=== PATIENT | female | born 1950 | race Caucasian/White ===

== ENCOUNTER → 2019-12-26 | Day surgery (SDC) | payer MEDICARE, BC ==
[~2019-12-26] MED LIST: BIOTIN PO; CALCIUM PO; CHOLECALCIFEROL PO; DEXMEDETOMIDINE HCL 2 ML ONE; FAMOTIDINE PO; FISH OIL 1,2001 EACH PO; FLUOROMETHOLONE15 ML OP; FOLIC ACID PO; GLUCAGON FOR INJ 1 MG VIAL ONE; HYOSCYAMINE 0.125 MG TAB ONE; LIDOCAINE HCL 2% LOCAL INJ 5 ML SDV VIAL INJ ONE; LOVASTATIN20 MG PO; MIDAZOLAM HCL 2 MG/2 ML VIAL ONE; MULTIVITAMINS1 EAC6 PO; PROPOFOL IV EMULSION 10 MG/ML 50 ML VIAL ONE; SODIUM CHLORIDE 0.9% 50ML 50 ML ONE; VITAMIN D PO; Z.0.LOSARTAN POTAS10 PO; Z.0.MULTIVITAMINS1 E PO; Z.0.PANTOPRAZOLE SO4 PO; Z.1.METHOTREXATE2.5 PO
--- OUTSIDE RECORDS SUMMARY | 2019-12-26 06:16 | XMS REPORT | Summary of Care ---
Author Author [facility] - Health Organization [facility] - Health Address Unknown Phone Unavailable Care Team Providers Care Subsystems Engineer Name Role Phone Laura Luna DO PCP Reason for Visit * Reason Comments Follow-up Atorvastatin Lesion right foot Encounter Details Care Team Description Date Type Department Laura Luna DO [address] [facility] [address] [place] [address] Mixed hyperlipidemia (Primary Dx); Skin lesion 11/11/2019 Office Visit [facility] Family Medicine [address] [facility] [address] [place] [address] Allergies No Known Allergiesdocumented as of this encounter (statuses as of 11/11/2019) Medications End Date Status Medication Sig Dispensed Refills Start Date Active methotrexate 2.5 mg Take 2.5 mg 0 tablet by mouth weekly. Pt takes 6 tabs once a week Active famotidine 20 mg tablet Take 20 mg by 0 mouth as needed. Active CALCIUM CARBONATE ORAL Take 900 mg 0 by mouth daily. Active FOLIC ACID ORAL Take 2,000 0 mcg by mouth daily. Active MULTIVITAMIN ORAL Take by 0 mouth. Active BIOTIN ORAL Take 5,000 0 mcg by mouth daily. Active Cholecalciferol, Vitamin Take 2,000 0 D3, 2,000 unit capsule Units by mouth daily. Active docosahexanoic acid/epa Take by 0 (FISH OIL ORAL) mouth daily. Takes 1,000/200 Active losartan 100 mg Take 1 tablet 90 tablet 3 tabletIndications: by mouth 9 Essential hypertension daily. Active atorvastatin 10 mg Take 1 tablet 30 tablet 2 tabletIndications: Mixed by mouth at 9 hyperlipidemia bedtime. 11/11/2019 Discontinued ERGOCALCIFEROL, VITAMIN Take 3,600 0 D2, (VITAMIN D ORAL) Int'l Units/day by mouth. documented as of this encounter (statuses as of 11/11/2019) Active Problems Problem Noted Date Mixed hyperlipidemia 11/11/2019 Rheumatoid arthritis Overview: sees rheumatology Dr. Torres Breast cancer Overview: left then right s/p bilateral mastectomy in the 1990s Hypertension Onychomycosis Salzmann nodular degeneration GERD (gastroesophageal reflux disease) Hemorrhoid Osteopenia documented as of this encounter (statuses as of 11/11/2019) Resolved Problems Problem Noted Date Resolved Date UTI (urinary tract infection) 08/16/2016 03/22/2018 Pneumonia 03/16/2015 03/22/2018 Sinusitis 03/22/2018 Overview: frequent Bronchitis 03/22/2018 Overview: frequent RUQ pain 03/22/2018 Overview: intermittent Hypercalcemia 03/22/2018 documented as of this encounter (statuses as of 11/11/2019) Immunizations Name Administration Dates Next Due Influenza High Dose 08/11/2019 Influenza Virus Vaccine 08/03/2018 Influenza Virus Vaccine 07/25/2015, 08/07/2014, 08/14/2013, 07/30/2012, Quad IM Multi-dose 6+ MO 07/20/2011 Pneumococcal 13 10/25/2016 Conjugate, PCV13 (Prevnar 13) Pneumococcal 10/16/2009 Polysaccharide, PPSV23 (PNEUMOVAX) Tdap 09/03/2012, 11/30/2007 Zoster Vaccine 09/05/2019 Recombinant documented as of this encounter Social History Date Tobacco Use Types Packs/Day Years Used Never Smoker Smokeless Tobacco: Never Used Drinks/Week oz/Week Comments Alcohol Use 0 Standard drinks or equivalent 0.0 No Sex Assigned at Date Recorded Not on file Industry Job Start Date Occupation Not on file Not on file Not on file Travel End Travel History Travel Start No recent travel history available. documented as of this encounter Last Filed Vital Signs Reading Time Taken Comments Vital Sign 134/84 11/11/2019 11:36 AM RETAIL COSMETICS SALES COUNTER MANAGER Blood Pressure 73 11/11/2019 11:36 AM RETAIL COSMETICS SALES COUNTER MANAGER Pulse 36.4 C (97.5 F) 11/11/2019 11:36 AM RETAIL COSMETICS SALES COUNTER MANAGER Temperature 16 11/11/2019 11:36 AM RETAIL COSMETICS SALES COUNTER MANAGER Respiratory Rate 99% 11/11/2019 11:36 AM RETAIL COSMETICS SALES COUNTER MANAGER Oxygen Saturation - - Inhaled Oxygen Concentration 78.6 kg (173 lb 3.2 oz) 11/11/2019 11:36 AM RETAIL COSMETICS SALES COUNTER MANAGER Weight 162.6 cm (5' 4") 11/11/2019 11:36 AM RETAIL COSMETICS SALES COUNTER MANAGER Height 29.73 11/11/2019 11:36 AM RETAIL COSMETICS SALES COUNTER MANAGER Body Mass Index documented in this encounter Progress Notes * Leonciosavanna Laura, DO - 11/11/2019 12:00 PM RETAIL COSMETICS SALES COUNTER MANAGER chief complaint: Follow-up (Atorvastatin) and Lesion (right foot) Nakia Ashby is a 67 year old female with pmh of breast ca and b/l masectom y in the , GERD, HTN, and osteopenia presents for f/u after starting atorva statin. Patient has hx/o elevated lipids 6 months ago and at that time I offered to let her work on diet. She reports she did not change her diet too much, she did try benefiber but this caused more cramping and some increased fecal urgency so she stopped this. She had repeat testing 2 months ago that were still elevated so I recommended st arting Atorvastatin and she denies any medication SEs including joint pain or ab d pain. She is requesting to go to lovastatin instead of atorvastatin due to cost. He did see Dr. Ashby and they did an xray and found that it is a darwin protrusio n and they recommended soaking it and filing it down and this is helping. It is still bothering her and she would like to have it removed. Last colonoscopy was in 2014 and was normal, next scheduled for 12/2019 She did get the shingrix vaccine in 08/2019 and the flu in 07/2019 HISTORY Past Medical History: Diagnosis Date Breast cancer 1988, 1997 left then right s/p bilateral mastectomy Bronchitis frequent GERD (gastroesophageal reflux disease) Hemorrhoid Hypercalcemia Hypertension Onychomycosis Osteopenia Pneumonia 03/2015 Pyelonephritis 07/2015 Rheumatoid arthritis sees rheumatology Dr. Torres; she is sero negative RUQ pain intermittent; 02/14/17 normal abdominal usg Salzmann nodular degeneration Sinusitis frequent UTI (urinary tract infection) 08/2016 Past Surgical History: Procedure Laterality Date BUNIONECTOMY Right 03/2012 COLONOSCOPY 10/2014 repeat due 2019 COLONOSCOPY 2000 repeat 2010 COLONOSCOPY 08/24/11 polyps; repeat 2013 EGD (ENDO) 08/24/11 RI MASTECTOMY, RADICAL Right 1997 with reconstruction for cancer RI MASTECTOMY, RADICAL Left 1988 for cancer TONSILLECTOMY WITH ADENOIDECTOMY 7 yo TUBAL LIGATION 1985 Social History Socioeconomic History Marital status: Spouse name: Not on file Number of children: 4 Years of education: Not on file Highest education level: Not on file Occupational History Occupation: homemaker-nonworking physician Social Needs Financial resource strain: Not on file Food insecurity: Worry: Not on file Inability: Not on file Transportation needs: Medical: Not on file Non-medical: Not on file Tobacco Use Smoking status: Never Smoker Smokeless tobacco: Never Used Substance and Sexual Activity Alcohol use: No Alcohol/week: 0.0 standard drinks Drug use: No Sexual activity: Yes Partners: Male Lifestyle Physical activity: Days per week: Not on file Minutes per session: Not on file Stress: Not on file Relationships Social connections: Talks on phone: Not on file Gets together: Not on file Attends synagogue service: Not on file Active member of club or organization: Not on file Attends meetings of clubs or organizations: Not on file Relationship status: Not on file Intimate partner violence: Fear of current or ex partner: Not on file Emotionally abused: Not on file Physically abused: Not on file Forced sexual activity: Not on file Other Topics Concern Not on file Social History Narrative Has 4 children. 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 She has 4 grandkids (3 girl s, 1 boy, ages 8, 6, 5, 2.5) and her children live nearby. Oldest Dtr 2 yea rs ago when youngest was 4mos old [place]. Son-in -law is getting remarried. Entry Laura Fangsavanna 03/22/18 Reviewed: past medical history, social history, surgical history REVIEW OF SYSTEMS Review of Systems Constitutional: Negative for chills, fever and unexpected weight change. Eyes: Negative for pain, redness and visual disturbance. Respiratory: Negative for cough, shortness of breath and wheezing. Cardiovascular: Negative for chest pain, palpitations and leg swelling. Gastrointestinal: Negative for abdominal distention, abdominal pain and blood in stool. Genitourinary: Negative for dysuria, frequency and hematuria. Musculoskeletal: Negative for gait problem, joint swelling and myalgias. Skin: Negative for color change, rash and wound. Neurological: Negative for syncope, weakness and headaches. Psychiatric/Behavioral: Negative for dysphoric mood and sleep disturbance. The p atient is not nervous/anxious. Outpatient Medications Marked as Taking for the 11/11/19 encounter (Office Visit) with Laura Luna, DO Medication Sig Dispense Refill atorvastatin 10 mg tablet Take 1 tablet by mouth at bedtime. 30 tablet 2 PHYSICAL EXAM BP 134/84 | Pulse 73 | Temp 36.4 C (97.5 F) | Resp 16 | Ht 5' 4" (1.626 m) | Wt 173 lb 3.2 oz (78.6 kg) | SpO2 99% | BMI 29.73 kg/m Wt Readings from Last 4 Encounters: 11/11/19 173 lb 3.2 oz (78.6 kg) 04/04/19 173 lb 8 oz (78.7 kg) 03/22/18 170 lb 11.2 oz (77.4 kg) 02/27/17 171 lb (77.6 kg) Physical Exam Constitutional: She is oriented to person, place, and time. She appears well-dev eloped and well-nourished. No distress. HENT: Head: Normocephalic and atraumatic. Nose: Nose normal. Eyes: Pupils are equal, round, and reactive to light. Conjunctivae and EOM are n ormal. Neck: Neck supple. No JVD present. Cardiovascular: Normal rate and regular rhythm. No murmur heard. Pulmonary/Chest: Effort normal and breath sounds normal. She has no wheezes. Musculoskeletal: Normal range of motion. She exhibits no edema or deformity. Lymphadenopathy: She has no cervical adenopathy. Neurological: She is alert and oriented to person, place, and time. No cranial n erve deficit. Skin: Skin is warm and dry. No rash noted. Lesion on anterior right ankle is slightly small but still with callous in cente r. Nursing note and vitals reviewed. Labs from last 3 months were reviewed during this visit. ASSESSMENT Mixed hyperlipidemia (primary encounter diagnosis) Comment: chronic Plan: LIPID PANEL (50948)(TOTAL CHOLESTEROL, TRIGLYCERIDES, HDL), COMP. METABOLIC PANEL (72880) Will repeat labs today, if ok, can switch to lovastatin and will determine dosing on this after getting labs back. Follow-up after lab sand in 1 year. Skin lesion Comment: chronic, persistent Plan: recommedned showing to her branch sales manager and if they do not remove the are a then she can call and I will refer to Dr. Rocha with podiatry, follow-up cora interiano sin 1 year. I spent 15 minutes with the patient/family with >50% of the time spent in discussion of care management and coordination. Appropriate plan of care, desired health behaviors, goals and medications discus sed with patient and educational resources and self-management tools provided, a s applicable. Patient/family/guardian voice understanding and agreed with the p fredy. Barriers to adherence: none Ability to manage care: Good As necessary, prescribed medications and potential significant medication side e ffects or medication interactions were discussed with the patient and pt will le t me know if any occur. Call or return to clinic prn if these symptoms worsen or fail to improve as anti cipated. Call or report to ER if symptoms should symptoms progress or worsen. The patient indicates understanding of these issues and agrees with the plan. AVS printed and given to patient/family/guardian Follow up as directed above and with any currently scheduled appointments. Future Appointments Date Time Provider Department Center 11/11/2019 12:45 PM Vls-Lab [facility] [place] COSMETICS SALES COUNTER MANAGER documented in this encounter Plan of Treatment Care Team Description Date Type Specialty Laura Luna DO [address] [facility] [address] [place] [address] Vls-Lab Arrived 11/11/2019 Six Pack Loader Operator Phlebotomy Visit Order Schedule Name Type Priority Associated Diagnoses Ordered: 11/11/2019 LIPID PANEL (77602)(TOTAL LAB Routine Mixed hyperlipidemia CHOLESTEROL, TRIGLYCERIDES, HDL) Ordered: 11/11/2019 COMP. METABOLIC PANEL LAB Routine Mixed hyperlipidemia (26846) Health Maintenance Due Date Last Done Comments Zoster Recombinant 2001 Vaccine (SHINGRIX) (1 of 2) INFLUENZA VACCINE (#1) 2019 08/03/2018, 07/25/2015, 08/07/2014, Additional history exists COLONOSCOPY 01/03/2020 10/16/2014 Postponed from 10/16/2019 (Alternative Guidelines) Medicare Wellness Visit 06/05/2020 06/05/2019, 10/25/2016 PNEUMOCOCCAL VACCINES 65+ 04/15/2021 10/25/2016, 10/16/2009 Postponed from 10/25/2017 (2 of 2 - PPSV23) (Alternative Guidelines) DTaP,Tdap,and Td Vaccines 09/03/2022 09/03/2012, 11/30/2007 (3 - Td) Osteoporosis Screening 04/10/2028 04/10/2018 HEPATITIS C (HCV) SCREEN Completed 03/16/2015 documented as of this encounter Results Not on filedocumented in this encounter Visit Diagnoses Diagnosis Mixed hyperlipidemia - Primary Skin lesion Unspecified disorder of skin and subcutaneous tissue documented in this encounter Insurance Type Payer Benefit Subscriber ID Effective Phone Address Plan / Dates Group Medicare MEDICARE MEDICARE xxxxxxxxxxx 2016-P [phone] [address] resent [id number] [place] [id number] Medicare Supplement [facility] [id number] 2016- [id number] [place] [address] documented as of this encounter
--- OUTSIDE RECORDS SUMMARY | 2019-12-26 06:16 | XMS REPORT | Summary of Care ---
Author Author [facility] - Health Organization [facility] - Health Address Unknown Phone Unavailable Care Team Providers Care Cone Treater Name Role Phone Laura Luna DO PCP Encounter Details Care Team Description Date Type Department Laura Luna DO [address] [facility] [address] [place] [address] Mixed hyperlipidemia (Primary Dx) 11/22/2019 Patient Secure [facility] [phone] Allergies No Known Allergiesdocumented as of this encounter (statuses as of 11/22/2019) Medications End Date Status Medication Sig Dispensed [...] by mouth 9 Essential hypertension daily. Active lovastatin 20 mg Take 1 tablet 90 tablet 1 tabletIndications: Mixed by mouth at 0 hyperlipidemia bedtime. 11/22/2019 Discontinued atorvastatin 10 mg Take 1 tablet 30 tablet 2 tabletIndications: Mixed by mouth at 9 hyperlipidemia bedtime. documented as of this encounter (statuses as of 11/22/2019) Active Problems Problem Noted Date Mixed hyperlipidemia 11/11/2019 Rheumatoid arthritis Overview: sees rheumatology Dr. Torres Breast cancer Overview: left then right s/p bilateral mastectomy in the 1990s Hypertension Onychomycosis Salzmann nodular degeneration GERD (gastroesophageal reflux disease) Hemorrhoid Osteopenia documented as of this encounter (statuses as of 11/22/2019) Resolved Problems Problem Noted Date Resolved Date UTI (urinary tract infection) 08/16/2016 03/22/2018 Pneumonia 03/16/2015 03/22/2018 Sinusitis 03/22/2018 Overview: frequent Bronchitis 03/22/2018 Overview: frequent RUQ pain 03/22/2018 Overview: intermittent Hypercalcemia 03/22/2018 documented as of this encounter (statuses as of 11/22/2019) Immunizations Name Administration Dates Next Due Influenza [...] of this encounter Last Filed Vital Signs Not on filedocumented in this encounter Plan of Treatment Health Maintenance Due Date Last Done Comments Zoster Recombinant 10/31/2019 09/05/2019 Vaccine (SHINGRIX) (2 of 2) COLONOSCOPY 01/03/2020 10/16/2014 Postponed from 10/16/2019 (Alternative Guidelines) Medicare Wellness Visit 06/05/2020 06/05/2019, 10/25/2016 PNEUMOCOCCAL VACCINES 65+ 04/15/2021 10/25/2016, 10/16/2009 Postponed from 10/25/2017 (2 of 2 - PPSV23) (Alternative Guidelines) DTaP,Tdap,and Td Vaccines 09/03/2022 09/03/2012, 11/30/2007 (3 - Td) Osteoporosis Screening 04/10/2028 04/10/2018 HEPATITIS C (HCV) SCREEN Completed 03/16/2015 INFLUENZA VACCINE Completed 08/11/2019, 08/03/2018, 07/25/2015, Additional history exists documented as of this encounter Results Not on filedocumented in this encounter Visit Diagnoses Diagnosis Mixed hyperlipidemia - Primary documented in this encounter Insurance Type Payer Benefit Subscriber ID Effective Phone Address Plan / Dates Group Medicare MEDICARE MEDICARE xxxxxxxxxxx 2016-P [phone] resent [id number] [place] [id number] Medicare Supplement [facility] [id number] 2016- [phone] [id number] [place] [address] documented as of this encounter
--- OUTSIDE RECORDS SUMMARY | 2019-12-26 06:16 | XMS REPORT | Summary of Care ---
Author Author [facility] - Health Organization [facility] - Health Address Unknown Phone Unavailable Care Team Providers Care Manager Student Services Name Role Phone Laura Luna DO PCP Reason for Visit * Reason Comments LAB WORK Encounter Details Care Team Description Date Type Department Laura Luna DO [address] [facility] [address] [place] [phone] Vls-Lab Mixed hyperlipidemia 11/11/2019 [facility] Visit PHLEBOTOMY/LAB [address] [facility] [address] [place] [phone] Allergies No Known Allergiesdocumented as of this [...] this encounter Visit Diagnoses Diagnosis Mixed hyperlipidemia documented in this encounter Insurance Type Payer Benefit Subscriber ID Effective Phone Address Plan / Dates Group Medicare MEDICARE MEDICARE xxxxxxxxxxx 2016-P [phone] [address] resent [id number] [place] [id number] Medicare Supplement [facility] [id number] 2016- [phone] [id number] [place] [address] documented as of this encounter
--- OUTSIDE RECORDS SUMMARY | 2019-12-26 06:16 | XMS REPORT ---
Author Author [facility] Address Unknown Phone Unavailable Care Team Providers Care Optimization Analyst Name Role Phone Unavailable Unavailable Problems This patient has no known problems. Allergies, Adverse Reactions, Alerts This patient has no known allergies or adverse reactions. Medications This patient has no known medications.
--- OUTSIDE RECORDS SUMMARY | 2019-12-26 06:16 | XMS REPORT | Summary of Care ---
Author Author [facility] - Health Organization [facility] - Health Address Unknown Phone Unavailable Care Team Providers Care Calcine Furnace Tender Name Role Phone Laura Luna DO PCP Reason for Visit * Reason Comments Follow-up Atorvastatin Lesion right foot Encounter Details Care Team Description Date Type Department Laura Luna DO [address] [facility] [address] [place] [address] Mixed hyperlipidemia (Primary Dx); Skin lesion 11/11/2019 Office Visit [facility] Family Medicine [address] [facility] [address] [place] [address] Allergies No Known Allergiesdocumented as [...] Comments Vital Sign 134/84 11/11/2019 11:36 AM MANAGER TRACK Blood Pressure 73 11/11/2019 11:36 AM MANAGER TRACK Pulse 36.4 C (97.5 F) 11/11/2019 11:36 AM MANAGER TRACK Temperature 16 11/11/2019 11:36 AM MANAGER TRACK Respiratory Rate 99% 11/11/2019 11:36 AM MANAGER TRACK Oxygen Saturation - - Inhaled Oxygen Concentration 78.6 kg (173 lb 3.2 oz) 11/11/2019 11:36 AM MANAGER TRACK Weight 162.6 cm (5' 4") 11/11/2019 11:36 AM MANAGER TRACK Height 29.73 11/11/2019 11:36 AM MANAGER TRACK Body Mass Index documented in this encounter Progress Notes * Leonciosavanna Laura, DO - 11/11/2019 12:00 PM MANAGER TRACK chief complaint: Follow-up (Atorvastatin) and Lesion (right [...] 08/24/11 polyps; repeat 2013 EGD (ENDO) 08/24/11 MI MASTECTOMY, RADICAL Right 1997 with reconstruction for cancer MI MASTECTOMY, RADICAL Left 1988 for cancer TONSILLECTOMY [...] file Gets together: Not on file Attends church service: Not on file Active member of [...] Narrative 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 She has 4 grandkids (3 girl s, [...] encounter diagnosis) Comment: chronic Plan: LIPID PANEL (61694)(TOTAL CHOLESTEROL, TRIGLYCERIDES, HDL), COMP. METABOLIC PANEL (34846) Will repeat labs today, if ok, can switch to lovastatin and will determine dosing on this after getting labs back. Follow-up after lab sand in 1 year. Skin lesion Comment: chronic, persistent Plan: recommedned showing to her lease analyst and if they do not remove the [...] Provider Department Center 11/11/2019 12:45 PM Vls-Lab [facility] GER TRACK documented in this encounter Plan of Treatment Care Team Description Date Type Specialty Laura Luna DO [address] [facility] [address] [place] [address] Vls-Lab Arrived 11/11/2019 Tourist Cabin Keeper Phlebotomy Visit Order Schedule Name Type Priority Associated Diagnoses Ordered: 11/11/2019 LIPID PANEL (57480)(TOTAL LAB Routine Mixed hyperlipidemia CHOLESTEROL, TRIGLYCERIDES, HDL) Ordered: 11/11/2019 COMP. METABOLIC PANEL LAB Routine Mixed hyperlipidemia (90559) Health Maintenance Due Date Last Done Comments [...] Dates Group Medicare MEDICARE MEDICARE xxxxxxxxxxx 2016-P [phone] [address] resent [id number] [place] [id number] Medicare [facility] [id number] 2016- [phone] [id number] [place] [address] documented as of this encounter
--- OUTSIDE RECORDS SUMMARY | 2019-12-26 06:17 | XMS REPORT | Summary of Care ---
Author Author [facility] - Health Organization [facility] - Health Address Unknown Phone Unavailable Care Team Providers Care Auxiliary Plant Operator Name Role Phone Laura Luna PCP Encounter Details Care Team Description Date Type Department Doctor Unassigned, [place] [address] [place] [address] 12/11/2019 Orders Only [facility] [address] [place] [address] Allergies No Known Allergiesdocumented as of this encounter (statuses as of 12/11/2019) Medications End Date Status Medication Sig Dispensed [...] Mixed by mouth at 0 hyperlipidemia bedtime. documented as of this encounter (statuses as of 12/11/2019) Active Problems Problem Noted Date Mixed hyperlipidemia 11/11/2019 Rheumatoid arthritis Overview: sees rheumatology Dr. Torres Breast cancer Overview: left then right s/p bilateral mastectomy in the Hypertension Onychomycosis Salzmann nodular degeneration GERD (gastroesophageal reflux disease) Hemorrhoid Osteopenia documented as of this encounter (statuses as of 12/11/2019) Resolved Problems Problem Noted Date Resolved Date UTI (urinary tract infection) 08/16/2016 03/22/2018 Pneumonia 03/16/2015 03/22/2018 Sinusitis 03/22/2018 Overview: frequent Bronchitis 03/22/2018 Overview: frequent RUQ pain 03/22/2018 Overview: intermittent Hypercalcemia 03/22/2018 documented as of this encounter (statuses as of 12/11/2019) Immunizations Name Administration Dates Next Due Influenza [...] history exists documented as of this encounter Procedures Comments Procedure Name Priority Date/Time Associated Diagnosis EXTERNAL PROVIDER RECORDS Routine 12/11/2019 12:01 AM BI REPORT DEVELOPER documented in this encounter Results Not on filedocumented in this encounter Insurance Type Payer Benefit Subscriber ID Effective Phone Address Plan / Dates Group Medicare MEDICARE MEDICARE xxxxxxxxxxx 2016-P [phone] resent [id number] [place] [id number] Medicare Supplement [facility] [id number] 2016- [phone] [id number] [place] [address] documented as of this encounter
[2019-12-26 09:30] VITALS: BP 115/60
--- NOTE | 2019-12-26 12:27 | Operative Report ---
DATE OF PROCEDURE: 12/26/2019 SURGEON: Edwin Cash MD PROCEDURE: Colonoscopy with polypectomy. INDICATIONS FOR COLONOSCOPY: Surveillance colonoscopy, personal history of colon polyps. MEDICATIONS: The patient was done under MAC, please see anesthesiologist's note. PROCEDURE IN DETAIL: With the patient in the left lateral decubitus position, a flexible fiberoptic Olympus colonoscope was inserted into the rectum with ease and advanced all the way to the cecum. Mucosa overlying the cecum appeared to be within normal limits. An approximately 4 mm sessile polyp was then removed per cold snare polypectomy from the proximal ascending colon. The rest of the ascending, transverse, descending, and sigmoid grossly appeared to be within normal limits. One polyp was hot biopsied from the rectum. The scope was then retroflexed into the distal rectum and small internal hemorrhoids were noted, none of which was actively bleeding. The scope was then straightened out, it was subsequently withdrawn, and the patient tolerated the procedure well. IMPRESSION: 1. Proximal ascending colon polyp, approximately 4 mm, sessile, removed per cold snare polypectomy. 2. Rectal polyp, hot biopsied. 3. Internal hemorrhoids, none actively bleeding. PLAN: Follow up histology. Initiate high-fiber, low-fat diet. Initiate high-fiber supplement. The patient might benefit from a followup colonoscopy in 5 years. Edwin Cash MD [facility] [place] /[id number] cc: Dr. Laura Luna
== END | disposition home or self-care (01) ==
LOC: OR 06:06
PROVIDERS: ATTEND Internal Medicine Gastroenterology
DX: K63.5 Polyp of colon (principal); K62.1 Rectal polyp; K64.8 Other hemorrhoids; Z86.010 Personal history of colon polyps; I10 Essential (primary) hypertension; K21.9 Gastro-esophageal reflux disease without esophagitis
CPT/HCPCS: 45384; 45385; 88305; 93005; J1610; J2001; J2250; J2704; 45378

== ENCOUNTER → 2025-01-29 | Day surgery (SDC) | payer MEDICARE, BC ==
[2025-01-16 10:19] LABS: BASOPHILS % 0.6 % (0.0-1.0); EOSINOPHILS # (AUTO) 0.2 (0.0-0.4); EOSINOPHILS % 3.5 % (0.0-6.0); HEMATOCRIT 39.2 % (34.2-44.1); HEMOGLOBIN 12.5 g/dL (12.0-16.0); LYMPHOCYTES # (AUTO) 1.9 (1.0-3.2); LYMPHOCYTES % 30.7 % (18.0-39.1); MEAN CORPUSCULAR HEMOGLOBIN 29.9 pg (28-32); MEAN CORPUSCULAR HGB CONC 31.9 g/dL (31-35); MEAN CORPUSCULAR VOLUME 93.8 fL (81-99); MONOCYTES # (AUTO) 0.9 (0.2-0.8); MONOCYTES % 14.4 % (4.4-11.3); NEUTROPHILS # (AUTO) 3.2 (2.1-6.9); NEUTROPHILS % 50.5 % (38.7-80.0); PLATELET COUNT 218 x10e3/uL (140-360); RED BLOOD COUNT 4.18 x10e6/uL (3.6-5.1); RED CELL DISTRIBUTION WIDTH 15.4 % (11.7-14.4); WHITE BLOOD COUNT 6.25 x10e3/uL (4.8-10.8)
[~2025-01-29] MED LIST changes: -DEXMEDETOMIDINE HCL 2 ML ONE; +FENTANYL CITRATE/PF 100MCG/2 ML INJ ONE; -GLUCAGON FOR INJ 1 MG VIAL ONE; +GLYCOPYRROLATE INJ 0.2 MG/ML VIAL ONE; -HYOSCYAMINE 0.125 MG TAB ONE; +LORATADINE10 MG PO; -MIDAZOLAM HCL 2 MG/2 ML VIAL ONE; +PLAQUENIL200 MG PO; +PROPOFOL IV EMULSION 10 MG/ML 20 ML VIAL ONE; -PROPOFOL IV EMULSION 10 MG/ML 50 ML VIAL ONE; -SODIUM CHLORIDE 0.9% 50ML 50 ML ONE
[2025-01-29] MEDS: LACTATED RINGER'S 1,000 ML ONE (06:51)
[2025-01-29 08:35] VITALS: TEMP 97.9
[2025-01-29 09:10] VITALS: BP 121/76; PULSE 88; RESP 16; O2SAT 96
== END | disposition home or self-care (01) ==
LOC: OR 06:21
PROVIDERS: ATTEND Internal Medicine Gastroenterology
DX: K29.50 Unspecified chronic gastritis without bleeding (principal); D12.3 Benign neoplasm of transverse colon; K31.7 Polyp of stomach and duodenum; K29.80 Duodenitis without bleeding; K20.90 Esophagitis, unspecified without bleeding; K22.89 Other specified disease of esophagus; K44.9 Diaphragmatic hernia without obstruction or gangrene; K64.8 Other hemorrhoids; C50.912 Malignant neoplasm of unspecified site of left female breast; G47.33 Obstructive sleep apnea (adult) (pediatric); I10 Essential (primary) hypertension; E78.5 Hyperlipidemia, unspecified; N39.0 Urinary tract infection, site not specified; M06.9 Rheumatoid arthritis, unspecified; Z01.810 Encounter for preprocedural cardiovascular examination; Z01.812 Encounter for preprocedural laboratory examination; Z79.899 Other long term (current) drug therapy
CPT/HCPCS: 36415; 43239; 43251; 45380; 45385; 85025; 88305; 93005; J2003; J2470; J2704; J3010; J7121; 45378